=== PATIENT | female | born 1990 | race African-American/Black ===

== ENCOUNTER 2019-12-06 07:11 | Day surgery (SDC) | payer OTHER ==
[~2019-12-06 07:11] MED LIST: CEFAZOLIN SODIUM IN 0.9 % NACL 2 GM/100 ML BAG IV ONE
[2019-12-06] MEDS ORDERED: LACTATED RINGERS 1,000 ML IV ONE (07:30)
[2019-12-06 07:54] LABS: HCG UR QUAL NEGATIVE
--- NOTE | 2019-12-06 08:01 | ANESTHESIA ---
Pre-Anesthesia VS, & Labs - Diagnosis Right hallux valgus - Procedure Right bunionectomy Vital Signs: Temp Pulse Resp BP Pulse Ox 36.2 C L 80 16 145/95 H 100 12/06/19 07:35 12/06/19 07:35 12/06/19 07:35 12/06/19 07:35 12/06/19 07:35 Height 5 ft 5 in Weight (kg) 102 kg - NPO >8 hours - Is Patient ?: No - Lab Results Lab results reviewed: Yes Home Medications and Allergies Home Medications: Ambulatory Orders Ferrous Sulfate 324 mg PO DAILY 11/28/19 Levonorgestrel-Ethin Estradiol [Sronyx] 1 each PO DAILY 11/28/19 Ferrous Sulfate 324 mg PO DAILY 11/28/19 Levonorgestrel-Ethin Estradiol [Sronyx] 1 each PO DAILY 11/28/19 Allergies/Adverse Reactions: Allergies Allergy/AdvReac Type Severity Reaction Status Date / Time No Known Drug Allergies Allergy Verified 11/28/19 13:01 Anes History & Medical History - Anesthetic History Anesthesia Complications: reports: No previous complications Family history of Anesthesia Complications: Denies Family history of Malignant Hyperthermia: Denies - Medical History Cardiovascular: reports: None Pulmonary: reports: None Gastrointestinal: reports: None Urinary: reports: None Neuro: reports: None Musculoskeletal: reports: None Endocrine/Autoimmune: reports: None Blood Disorders: reports: None Skin: reports: None Smoking Status: Never smoker Psychosocial: reports: Alcohol (once per week) Exam General: Alert, Oriented x3, Cooperative, No acute distress Dental: WNL Mouth Openin Fingerbreadth Neck Mobility: Normal Mallampati classification: I Thyromental Distance: greater than 6 cm Respiratory: Lungs clear, Normal breath sounds, No respiratory distress, No accessory muscle use Cardiovascular: Regular rate, Normal S1, Normal S2, No murmurs Mental/Cognitive Status: Alert/Oriented X3, Normal for patient Plan Anesthesia Type: General Consent for Procedure(s) Verified and Reviewed: Yes Code Status: Attempt Resuscitation ASA classification: 1-Healthy patient Is this case an emergency?: No
[2019-12-06] MEDS ORDERED: BUPIVACAINE 0.25% PF 30 ML VIAL ONE (08:14)
[2019-12-06] MEDS ORDERED: ONDANSETRON 4 MG/2 ML VIAL IVP ONE (08:35)
[2019-12-06] MEDS ORDERED: KETOROLAC 30 MG/ML VIAL IVP ONE (08:35)
[2019-12-06] MEDS ORDERED: HYDROmorphone 1 MG/ML CARPUJECT IVP ONE (08:35)
[2019-12-06] MEDS ORDERED: MIDAZOLAM 2 MG/2 ML VIAL IVP ONE (08:35)
[2019-12-06] MEDS ORDERED: fentaNYL 100 MCG/2 ML VIAL IVP ONE (08:35)
[2019-12-06] MEDS ORDERED: LIDOCAINE-MPF 2% 5 ML VIAL IM ONE (08:35)
[2019-12-06] MEDS ORDERED: ePHEDrine 50 MG/ML VIAL IVP ONE (08:35)
[2019-12-06] MEDS ORDERED: PROPOFOL 200 MG/20 ML VIAL IVP ONE (08:35)
[2019-12-06] MEDS ORDERED: DEXAMETHASONE 4 MG/ML VIAL IVP ONE (08:35)
[2019-12-06] MEDS ORDERED: BUPIVACAINE 0.25% PF 30 ML VIAL SUBQ ONE ×2 (09:11)
[2019-12-06] MEDS ORDERED: ONDANSETRON 4 MG/2 ML VIAL IVP PRN (11:01)
[2019-12-06] MEDS ORDERED: oxyCODONE 5 MG TABLET PO PRN (11:01)
--- NOTE | 2019-12-06 11:04 | OPERATIVE REPORT ---
Operative Report - Other Other Information/Narrative: Date of Surgery: 06 December 2019 Pre-Op Diagnosis: Right hallux valgus Procedure: Right bunion correction with first metatarsal scarf osteotomy and modified Thornton procedure Postop Diagnosis: Same Primary Surgeon: Tom Unger Secondary Surgeon: None Complications: None Tourniquet Time: 106 minutes EBL: 5 cc Bunion Postoperative Plan: 0-2 weeks: No weight bearing leave dressing intact 2 week appt: Non weight bearing xrays, sutures out, bunion brace applied 2-4 weeks: No weight bearing, may remove bunion brace for showers, no soaking incision 4 week appt: Reassess, provide forefoot offloading hard soled shoe 4-8 weeks: WBAT in forefoot offloading shoe, continue to use bunion brace 8 week monik: Weight bearing xrays, may transition to normal shoe Indication For Surgery: 29-year-old female with bunion since a child. She is tried wide shoes, activity modifications, and anti-inflammatory medications but continues to have symptoms while performing her job in her to standard work boot. The risks, benefits, and alternatives were discussed. Risks include pain, bleeding, infection, damage to nearby structures, numbness, recurrence of bunion, hallux varus, lack of symptom relief, implant complications, nonunion, need for further surgery, DVT, PE, stroke, and . Written consent was obtained. Procedure in Detail: The patient was met in the pre-operative hold area on the day of the procedure. The operative extremity was signed and questions were answered. The patient was brought to the operating room and a general anesthetic was administered. Supine position was used and bony prominences were padded. Standard prepping and draping was performed. A time out confirmed patient identification, laterality, procedure, allergies, antibiotics, and images. An Esmarch was used to exsanguinate the limb and the tourniquet was elevated to 300 mmHg. A 3 cm incision was made between the first and second metatarsal heads and blunt dissection was carried down. The neurovascular bundle was protected with a dull retractor. I identified the adductor tendon and the intermetacarpal ligament and sharply resected them from their attachments on the first ray. I took care to leave the flexor hallucis brevis attached to the lateral sesamoid. I incised the capsule between the sesamoid and the metacarpal head. I then pie crusted the lateral capsule between the metacarpal head and the proximal phalanx. A varus force was then applied to the toe and the toe freely moved in the varus. This wound was then packed with gauze A direct medial incision was made over the first metatarsal from the metatarsal phalangeal joint to just short of the tarsometatarsal joint. Blunt dissection was used to identify the dorsal cutaneous nerve and this was protected throughout the case. Full-thickness skin flaps were created. A full-thickness longitudinal capsular incision was made in the first MTP joint and the capsule was dissected off of the metatarsal head ensuring to preserve the plantar capsular attachments with the accompanying blood supply. A periosteal elevator was used to free the periosteum along the medial shaft. A silver osteotomy was then performed just off the cartilage surface ensuring to leave a medial shoulder. The distal dorsal transverse osteotomy was then made perpendicular to the first metatarsal shaft starting centrally and the metatarsal head. The total sawblade was left in place and the plantar proximal transverse osteotomy was made parallel to this ensuring to be within metaphyseal bone. The longitudinal osteotomy was then made parallel to the walking surface of the foot. A second proximal transverse osteotomy was made and a 4 mm chunk of bone was removed. A freer elevator was used to release the periosteum on the lateral surface to allow for the shift. I then shifted the plantar fragment laterally and pulled the dorsal fragment medially. This was then clamped in place and imaging confirmed excellent position. The plantar capsule was pulled on and the sesamoids reduced nicely. Satisfied with this position, countersunk 2.0 millimeter screws were placed proximally and distally confirming excellent purchase. The clamp was then removed and the fixation was stable. The medial shelf of bone was then excised with a sagittal saw. The wound was irrigated copiously. The medial shelf fragment was then flipped and inverted and placed plantarly at the osteotomy site. Images were again taken. I then reassessed the toe and found that there was good spread between the first and second toe and determined that an Rene osteotomy was not necessary. I then excised the excess medial capsule and performed a vest over pants plication and derotational capsular closure using 2-0 fiberwire, burying the knots between layers. This was backed up with multiple 0 Vicryl sutures. The periosteal layer was then closed with 0 Vicryl. The skin was closed with 2-0 Vicryl in the subdermis and 3-0 nylon in the skin. 20 cc of quarter percent Marcaine without epinephrine was placed deep to the incision. A sterile bunion dressing was applied. The patient was awakened and transferred to the recovery room.
[2019-12-06] MEDS ORDERED: ACETAMINOPHEN 1,000 MG/100 ML 100 ML IV ONE (11:07)
[2019-12-06] MEDS ORDERED: HYDROmorphone 0.5 MG/0.5 ML SYRINGE ONE (11:12)
[2019-12-06] MEDS ORDERED: fentaNYL 100 MCG/2 ML VIAL ONE (11:26)
[2019-12-06] MEDS ORDERED: oxyCODONE 5 MG TABLET ONE (11:47)
[2019-12-06 12:41] VITALS: BP 115/74
== END 2019-12-06 23:59 ==
LOC: SDS 07:11
PROVIDERS: ATTEND Orthopaedic Surgery
PROC: 0QBN0ZZ Excision of Right Metatarsal, Open Approach (ICD-10-PCS; 2019-12-06)
PROC: 0QSN04Z Reposition Right Metatarsal with Internal Fixation Device, Open Approach (ICD-10-PCS; principal; 2019-12-06 08:30)
DX: M20.11 Hallux valgus (acquired), right foot (principal); M20.12 Hallux valgus (acquired), left foot; E66.01 Morbid (severe) obesity due to excess calories
CPT/HCPCS: 81025

== ENCOUNTER 2020-06-14 18:04 | Emergency (ER) | payer OTHER ==
[2020-06-14 18:09] VITALS: BP 150/94
--- NOTE | 2020-06-14 18:31 | ED Physician Documentation ---
PD HPI LOWER EXT INJURY - Stated complaint Stated Complaint: RIGHT BIG TOE NAIL PX - Chief complaint Chief Complaint: Wound - History obtained from History obtained from: Patient - History of Present Illness PD HPI LOW EXT INJURY LOCATION: Right, Toe (great toe) Type of injury: Other (has had redness and swelling and then draining pus, but still red/tender.). No: Fall, Twist Timing - onset: How many days ago (few) Timing - duration: Days (few) Timing - details: Gradual onset, Still present Worsened by: Palpating Associated symptoms: Swelling, Discolored (red). No: Weakness, Numbness Similar symptoms before: Has not had sx before Review of Systems Constitutional: denies: Fever, Chills Neurologic: denies: Focal weakness, Numbness PD PAST MEDICAL HISTORY - Past Medical History Past Medical History: No Cardiovascular: None Respiratory: None Neuro: None Endocrine/Autoimmune: None GI: None : None HEENT: None Psych: None Musculoskeletal: None Derm: None - Past Surgical History Past Surgical History: Yes - Present Medications Home Medications: Ambulatory Orders Medication Instructions Recorded Confirmed Ferrous Sulfate 324 mg PO DAILY 11/28/19 12/06/19 Levonorgestrel-Ethin Estradiol 1 each PO DAILY 11/28/19 12/06/19 [Sronyx] Hydrocodone/Acetaminophen [[place] 1 each PO Q6H PRN #10 tablet 06/14/20 5-325 Tablet] Naproxen 375 mg PO TID #30 tablet 06/14/20 Sulfamethox/Trimeth 800/160 1 each PO BID #12 tablet 06/14/20 [Bactrim Ds 800/160] - Allergies Allergies/Adverse Reactions: Allergies Allergy/AdvReac Type Severity Reaction Status Date / Time No Known Drug Allergies Allergy Verified 06/14/20 18:09 - Social History Does the pt smoke?: No Smoking Status: Never smoker Does the pt have substance abuse?: No PD ED PE NORMAL - Vitals Vital signs reviewed: Yes - General General: Alert and oriented X 3, No acute distress, Well developed/nourished - Derm Derm: Normal color, Warm and dry - Extremities Extremities: Other (right great toe with redness and swelling with some drainage from medial nailbed corner. Small ingrown nail at corner which is trimmed without anesth.) - Neuro Neuro: No motor deficit, No sensory deficit Results - Vitals Vitals: Vital Signs - 24 hr 06/14/20 06/14/20 18:07 19:00 Temperature 36.7 C Heart Rate 97 88 Respiratory 17 Rate Blood Pressure 150/94 H O2 Saturation 99 Oxygen O2 Source Room air PD MEDICAL DECISION MAKING - ED course Complexity details: considered differential, d/w patient Departure - Departure Disposition: 01 Home, Self Care Clinical Impression: Paronychia Condition: Stable Record reviewed to determine appropriate education?: Yes Instructions: ED Fingernail Infec Follow-Up: BABS TRONCOSO ARNP [Primary Care Provider] - Prescriptions: Sulfamethox/Trimeth 800/160 [Bactrim Ds 800/160] 1 each PO BID #12 tablet Naproxen 375 mg PO TID #30 tablet Hydrocodone/Acetaminophen [[place] 5-325 Tablet] 1 each PO Q6H PRN #10 tablet PRN Reason: Pain Comments: Warm moist soaks to help promote drainage to 3 times a day. He can continue with the ointment to the area. Use Bactrim antibiotic twice daily for the next 5 or 6 days until this looks fully healed. Anti-inflammatory such as naproxen 2-3 times daily. Add Tylenol if needed for pain or hydrocodone for worse pain. Recheck if not improving well over the next several days and resolved within 5 or 6 days. Discharge Date/Time: 06/14/20 19:04
[2020-06-14] MEDS ORDERED: IBUPROFEN 600 MG TABLET PO STA (18:44)
[2020-06-14] MEDS ORDERED: SULFAMETH/TRIMETH DS 800/160 MG TABLET PO STA (18:45)
== END 2020-06-14 19:04 | disposition home or self-care (01) ==
LOC: ED 18:04
DX: L03.031 Cellulitis of right toe (principal)
CPT/HCPCS: 99283; A9270

== ENCOUNTER 2020-07-16 18:08 | Emergency (ER) | payer OTHER ==
--- NOTE | 2020-07-16 18:59 | ED Physician Documentation ---
PD HPI LOWER EXT INJURY - Stated complaint Stated Complaint: RT TOE PX - Chief complaint Chief Complaint: Ext Problem - History obtained from History obtained from: Patient (Few days worth of soreness of the right great toe with some purulent drainage from the lateral surface of the nail today consistent with an ingrown toenail) Review of Systems Constitutional: reports: Reviewed and negative Cardiac: reports: Reviewed and negative Respiratory: reports: Reviewed and negative PD PAST MEDICAL HISTORY - Past Medical History Cardiovascular: None Respiratory: None Neuro: None Endocrine/Autoimmune: None GI: None : None HEENT: None Psych: None Musculoskeletal: None Derm: None - Past Surgical History Past Surgical History: Yes - Present Medications Home Medications: Ambulatory Orders Medication Instructions Recorded Confirmed Ferrous Sulfate 324 mg PO DAILY 11/28/19 12/06/19 Levonorgestrel-Ethin Estradiol 1 each PO DAILY 11/28/19 12/06/19 [Sronyx] Naproxen 375 mg PO TID #30 tablet 06/14/20 Sulfamethox/Trimeth 800/160 1 each PO BID #12 tablet 06/14/20 [Bactrim Ds 800/160] Cephalexin [Keflex] 500 mg PO Q6H #28 capsule 07/16/20 - Allergies Allergies/Adverse Reactions: Allergies Allergy/AdvReac Type Severity Reaction Status Date / Time No Known Drug Allergies Allergy Verified 07/16/20 18:32 - Social History Does the pt smoke?: No Smoking Status: Never smoker Does the pt have substance abuse?: No PD ED PE NORMAL - Vitals Vital signs reviewed: Yes - General General: Alert and oriented X 3, No acute distress - Extremities Extremities: Other (The lateral part of the right great toe is ingrown with mild cellulitis and drainage) - Neuro Neuro: Alert and oriented X 3, Normal speech Results - Vitals Vitals: Vital Signs - 24 hr 07/16/20 18:21 Temperature 37.2 C Heart Rate 79 Respiratory 18 Rate Blood Pressure 142/92 H O2 Saturation 99 Oxygen O2 Source Room air Procedures - General procedure General procedure: After verbal informed consent was obtained a digital block was done of the right great toe with buffered lidocaine and then the lateral fifth was removed with sharp excision and the patient tolerated well. There was minimal bleeding. Departure - Departure Disposition: 01 Home, Self Care Clinical Impression: Ingrown toenail of right foot Condition: Good Record reviewed to determine appropriate education?: Yes Instructions: ED Ingrown Toenail Excised Prescriptions: Cephalexin [Keflex] 500 mg PO Q6H #28 capsule
[2020-07-16] MEDS: BUFFERED LIDOCAINE 10 ML SYRINGE SUBQ STA (19:01)
[2020-07-16 19:32] VITALS: BP 142/97
== END 2020-07-16 19:33 | disposition home or self-care (01) ==
LOC: ED 18:08
DX: L60.0 Ingrowing nail (principal); L03.031 Cellulitis of right toe
CPT/HCPCS: 11765; 99283

== ENCOUNTER 2021-05-09 09:47 | Outpatient (CLI) | payer OTHER ==
--- NOTE | 2021-05-09 10:49 | SLEEP CARE CONSULTATION ---
Information from patient questionnaire entered by Mary Ball. I have reviewed and concur with the information entered by Mary Ball. This document represents the service I personally performed and the decisions made by me, Shanita Gupta ARNP. History of Present Illness Service Date and Time: 05/09/2021 0947 Reason for Visit: New patient Chief Complaint: reports: Insomnia, Unrefreshed sleep, Snoring, Excessive daytime sleepiness, Observed pauses in breathing, Fatigue, Frequent awakenings at night Date of Onset: since 2016 Usual bedtime: 1-2 am Time it takes to fall asleep: a few hours Snores at night: Yes Observed to quit breathing while asleep: Yes Number of times waking at night: 1-2 Reasons for waking at night: reports: Snoring (sometimes), Gasping for air, Other (unknown reason) Toss, Turn, or Twitch while sleeping: Yes Recalls having dreams: Yes Usually gets out of bed at: after 5 Feels refreshed in the morning: No Morning headache: Yes (sometimes, resolves with pain relievers; 1-2 times a week) Sleepy or fatigued during the day: Yes Ever fallen asleep while driving: No Takes day naps: Yes (3-4 times a week for about an hour or so) Dreams during day naps: No Prior sleep studies: No Additional HPI information: I had the pleasure of seeing WENDY SIMMS today regarding the possibility of her having a sleep disorder. Her current complaints are fatigue, frequent night awakenings, insomnia, observed pauses in breathing, snoring and unrefreshed sleep. She states in the last 2 years she has trouble sleeping. She will fall asleep in 1-2 hours at night and then wake up again about 2 AM and not be able to fall back to sleep. She has used Advil PM and melatonin with some success in getting to sleep sooner and may stay asleep better as well. She does snore loudly and some observed pauses in breathing when asleep. She does not wake up feeling refreshed and is sleepy during the day. She will use energy drinks in morning occasionally to get going. - Parasomnia Symptoms Ever been unable to move upon waking from sleep: Yes (every other month) Walks in sleep: No Talks in sleep: Yes (sometimes; makes humming noises) Ever acted out dreams in sleep: No Ever felt weak in the knees when startled or emotional: No Bothered by creepy, crawly, restless sensations in legs: Yes (usually right before going to sleep) Problems with memory or concentration: No Subjective Initial [place] Sleepiness Scale score: 14 (in 2020) Past Medical History Past Medical History: reports: Anemia, Anxiety Social History The patient's occupation is a Active . Patient is Single and lives in [place]. Have you smoked in the past 12 months: No Alcohol use: Yes Alcohol amount and frequency: 1-2 drinks every other week Caffeine use: Yes Caffeine amount and frequency: 1-2 drinks every other week Family History Family history of sleep disordered breathing: Yes Family Hx Sleep Apnea: Mother: Snoring, Sleep apnea - Untreated (not diagnosed) Allergies and Home Medications Drug allergies reviewed: Yes (NKDA) Home medication list reviewed: Yes Allergy and home medication list: Baclofen Ibuprofen Selenium sulfide 2.5 % lotion Carboxymethylcellulose sodum 0.5% eye drop ferrous sulfate 324 mg Orsythia Review of Systems Weight gain over past 5 years: 80 Weight loss over past 5 years: 10-15 Cardiovascular: denies: high blood pressure Gastrointestinal: denies: heartburn Neurological: denies: headaches Psychiatric: reports: anxiety Ear/Nose/Throat: reports: wisdom teeth removed. denies: injury to nose, tonsillectomy Endocrine: denies: thyroid disease Immunologic: denies: allergies to food or environment Physical Exam Cuff size: wrist Heart Rate: 65 O2 Saturation: 98 Height: 5 ft 5 in Weight: 242 lb Body Mass Index: 40.2 BMI Classification: Morbidly Obese Neck circumference: 14.75 (inches) Soft palate: normal Hard palate: normal Uvula: normal Uvula visualization: 100% Mallampati Class I Tongue: enlarged in size with teeth mckeon on lateral edges Tonsils: 1+ Neck: normal w/o lymphadenopathy or thyromegaly Heart: regular rate and rhythm Lungs: clear bilaterally Impression and Plan 1. Suspected Obstructive Sleep Apnea-Hypopnea Syndrome, as suggested by a history of loud and irregular snoring, observed cessation of breath while asleep, gasping or choking in sleep, morning headache, frequent awakening during the night, unrefreshed sleep, and excessive daytime sleepiness. Narrow oropharynx and obesity are common predisposing factors for obstructive sleep apnea-hypopnea syndrome. I recommend proceeding to polysomnography to confirm the diagnosis and to assess severity. If the patient has significant sleep disordered breathing, a manual CPAP titration study will also be performed to find the optimal treatment pressure. I informed the patient of what the sleep studies involve and after some discussion, obtained agreement to proceed. The pathophysiology of obstructive sleep apnea-hypopnea syndrome was discussed with the patient and health risks of cardiovascular and cerebrovascular disease if not treated. AAS brochure for obstructive sleep apnea-hypopnea syndrome given and reviewed. Risks of drowsy driving discussed in detail and patient advised to avoid long distance driving and to cotton puller at the first sign of drowsiness. Patient agreed to plan. * Schedule polysomnography +- manual CPAP titration study and return in 1-2 weeks after the study to discuss result and initiate therapy. * Avoid long distance driving or driving when feeling sleepy. * Avoid alcohol, sedative and muscle relaxant around bedtime. * Attempt to lose weight. * Review instructions provided by trained office staff on how to prepare for the sleep study. * Return for follow-up after sleep study completed. Counseling Topics: Weight loss health impact Visit Type: In Office Time Spent with Patient (minutes): 31 Provider Statement: I spent 100% of the Face to Face Visit with the patient with greater than 50% spent counseling the patient and coordination of care.
== END 2021-05-09 09:48 | disposition home or self-care (01) ==
LOC: SC 09:47
PROVIDERS: ATTEND Nurse Practitioner Family
DX: R06.83 Snoring (principal); R06.81 Apnea, not elsewhere classified; G47.8 Other sleep disorders; R51.9 Headache, unspecified; G47.10 Hypersomnia, unspecified; E66.01 Morbid (severe) obesity due to excess calories; Z68.41 Body mass index [BMI] 40.0-44.9, adult
CPT/HCPCS: 99203; 99212

== ENCOUNTER 2021-06-13 14:56 | Outpatient (CLI) | payer OTHER | END 2021-06-13 14:57 | disposition home or self-care (01) | LOC: SC 14:56 | PROVIDERS: ATTEND Nurse Practitioner Family | DX: G47.33 Obstructive sleep apnea (adult) (pediatric) (principal); E66.01 Morbid (severe) obesity due to excess calories; Z68.41 Body mass index [BMI] 40.0-44.9, adult | CPT/HCPCS: 95806 ==

== ENCOUNTER 2021-06-27 08:28 | Outpatient (CLI) | payer OTHER ==
--- NOTE | 2021-06-27 08:56 | SLEEP CARE CONSULTATION ---
Information from patient questionnaire entered by Mary Ball. I have reviewed and concur with the information entered by Mary Ball. This document represents the service I personally performed and the decisions made by , Shanita Gupta ARNP. History of Present Illness Service Date and Time: 06/27/2021827 Initial [place] Sleepiness Scale score: 14 (in 2020) Current [place] Sleepiness Scale score: 12 Additional HPI information: WENDY SIMMS returns for follow up and results of the recently performed home sleep study. I explained the pathophysiology behind obstructive sleep apnea. We then spent quite a bit of time discussing different treatment options. For mild obstructive sleep apnea, surgery and oral appliance are alternatives to nasal CPAP therapy but in moderate or severe cases, nasal CPAP is the most effective and reliable treatment. I reviewed the impact of weight changes on sleep apnea and strongly recommended losing weight. After some discussion, the patient opted to go with the nasal CPAP therapy. Nasal autoCPAP set at 4-15 cmH20 will be ordered with rationale explained. A manual titration study will be ordered if unable to find optimal pressure with office adjustments. I explained how CPAP machine works with sample devices [employer] Dreamstation and [employer] [id number] and what to expect when using the machine. Using CPAP every night in order to get used to it was emphasized. Patient advised to put CPAP mask on before getting into bed so as not to fall asleep without CPAP. To assist acclimation to CPAP use, it could also be used for a short time during day while reading or watching TV. The patient was instructed to call the CPAP supplier to discuss any mechanical problem that may occur. If the mask given is uncomfortable or is difficult to keep on through the night even with adjustment, contact the CPAP supplier as many will replace with another mask style if notified before 30 days. If snoring or perceives is not getting enough air or too much air from the machine, notify this office. [facility] patient education PAP tips reviewed and given to patient. Patient counseled not drink alcohol less than 4 hours before bedtime as it can increase snoring and apnea. Patient was cautioned about risks of drowsy driving until sleepiness symptoms resolve. Sleep Study - Results Type of Sleep Study: Home sleep study Prior sleep studies: No Polysomnography/Home Sleep Study results: Physician Impression: The quality of the study is good. The length of the study is adequate (> 240 minutes). Please also see the tabulated and graphic data. 1. Obstructive Sleep Apnea-Hypopnea (ICD-10 G47.33), moderate, with an AHI of 16.4/hr and ba SaO2 of 76%. During the study, the patient had 46 apneas (46 obstructive, 0 central, 0 mixed) and 37 hypopneas. The longest episode lasted 84.0 seconds. The respiratory events occurred more frequently during supine sleep (supine AHI was 14.6 and non-supine, 22.61). 2. Hypoxemia (ICD-10 R09.02), moderate, with the lowest oxygen saturation of 76 % and 4.5 minutes with SaO2 under 90%. Baseline oxygen saturation was normal (Average oxygen saturation was 95%). Allergies and Home Medications Home medication list reviewed: Yes (no changes) Review of Systems Review of systems same as previous: Yes (no changes) Physical Exam Heart Rate: 86 O2 Saturation: 98 Height: 5 ft 5 in Weight: 242 lb Body Mass Index: 40.2 BMI Classification: Morbidly Obese Impression and Plan 1. Obstructive Sleep Apnea-Hypopnea Syndrome, moderate, with lowest oxygen saturation of 76%. Obviously this is the cause of the patients symptoms of unrefreshed sleep, and excessive daytime sleepiness. Positive pressure therapy could benefit anxiety. As mentioned above, the patient will be started on nasal autoCPAP therapy with pressure set at 4-15 cmH2O. A manual titration study will be completed if unable to find optimal treatment pressure with office adjustments. Compliance guidelines also reviewed. A copy of compliance gu idelines will be given for reference at check out. 2. Hypoxemia, moderate, with the lowest oxygen saturation of 76 % and 4.5 minutes with SaO2 under 90%. Her baseline oxygen saturation was normal with an average oxygen saturation of 95%. * Nasal auto CPAP therapy, pressure at 4-15 cm H2O. * Attempt to lose weight. * Avoid alcohol consumption near bedtime. * Avoid supine sleep until using CPAP. * The patient is again cautioned about driving until sleepiness completely resolves. * Return one month after CPAP obtained. I will assess response to therapy and compliance at that time. Counseling Topics: Weight loss health impact Visit Type: In Office Time Spent with Patient (minutes): 20 Provider Statement: I spent 100% of the Face to Face Visit with the patient with greater than 50% spent counseling the patient and coordination of care.
== END 2021-06-27 08:29 | disposition home or self-care (01) ==
LOC: SC 08:28
PROVIDERS: ATTEND Nurse Practitioner Family
DX: G47.33 Obstructive sleep apnea (adult) (pediatric) (principal); E66.01 Morbid (severe) obesity due to excess calories; Z68.41 Body mass index [BMI] 40.0-44.9, adult; R09.02 Hypoxemia
CPT/HCPCS: 99212; 99213

== ENCOUNTER 2021-07-17 19:47 | Emergency (ER) | payer OTHER ==
--- NOTE | 2021-07-17 21:33 | XRAY Report ---
PROCEDURE: Knee 4 View RT INDICATIONS: lateral joint line pain/swelling TECHNIQUE: 4 views of the right knee(s) were acquired. COMPARISON: None. FINDINGS: Bones: No fractures or dislocations. Mild tricompartmental osteoarthritis is seen more prominent in medial femoral tibial compartment. No suspicious bony lesions. Soft tissues: No joint effusion. No suspicious soft tissue calcifications. IMPRESSION: No right knee fracture or dislocation. Mild tricompartmental osteoarthritis. No signific ant joint effusion. Reviewed by: Efrain Adhikari MD on 07/17/2021 9:32 PM PDT Approved by: Efrain Adhikari MD on 07/17/2021 9:32 PM PDT Station ID: [id number]
--- NOTE | 2021-07-17 21:35 | ED Physician Documentation ---
PD HPI LOWER EXT INJURY - Stated complaint Stated Complaint: RT KNEE PX - Chief complaint Chief Complaint: Ext Problem - History obtained from History obtained from: Patient - History of Present Illness PD HPI LOW EXT INJURY LOCATION: Right, Knee Type of injury: Other (over use) Where injury occurred: Street Timing - onset: How many days ago (2) Timing - duration: Days (2) Timing - details: Abrupt onset, Still present Improved by: Rest, Immobilization Worsened by: Moving, Palpating Associated symptoms: Swelling. No: Weakness, Numbness, Tingling Contributing factors: No: Anticoagulated Similar symptoms before: Diagnosis (knee strain) Recently seen: Not recently seen - Additional information Additional information: Previously well 30-year-old female has developed a problem similar to what she has today previously in December of this year with pain in her right knee. She states that at that time she was prescribed some Motrin and she reduced her level of activity her knee improved she is gone back to training again she is being more active and over the last 2 days she has developed pain again in the knee with swelling. Review of Systems Constitutional: denies: Fever Ears: denies: Ear pain Nose: denies: Congestion Throat: denies: Sore throat GI: denies: Vomiting PD PAST MEDICAL HISTORY - Past Medical History Cardiovascular: None Respiratory: None Neuro: None Endocrine/Autoimmune: None GI: None POKE IN: None : None HEENT: None Psych: None Musculoskeletal: None Derm: None - Past Surgical History Past Surgical History: Yes - Present Medications Home Medications: Ambulatory Orders Medication Instructions Recorded Confirmed Ferrous Sulfate 324 mg PO DAILY 11/28/19 12/06/19 Levonorgestrel/Ethin.estradiol 1 each PO DAILY 11/28/19 12/06/19 [Sronyx] Naproxen 375 mg PO TID #30 tablet 06/14/20 Sulfamethox/Trimeth 800/160 1 each PO BID #12 tablet 06/14/20 [Bactrim Ds 800/160] cephALEXin [Keflex] 500 mg PO Q6H #28 capsule 07/16/20 Ibuprofen [Motrin] 600 mg PO Q6H PRN #30 tab 07/17/21 - Allergies Allergies/Adverse Reactions: Allergies Allergy/AdvReac Type Severity Reaction Status Date / Time No Known Drug Allergies Allergy Verified 07/17/21 19:54 - Social History Does the pt smoke?: No Smoking Status: Never smoker Does the pt have substance abuse?: No - Immunizations Immunizations are current?: Yes PD ED PE NORMAL - Vitals Vital signs reviewed: Yes (hyertensive ) - General General: Alert and oriented X 3, No acute distress, Well developed/nourished - HEENT HEENT: Atraumatic, PERRL, EOMI - Respiratory Respiratory: No respiratory distress - Derm Derm: Normal color, Warm and dry, No rash - Extremities Extremities: No deformity, No edema, Other (right knee with swelling tenderness to the lateral aspect. Ligaments are stable. ) - Neuro Neuro: Alert and oriented X 3, medical records coordinator 2-12 intact, No motor deficit, No sensory de ficit, Normal speech Eye Opening: Spontaneous Motor: Obeys Commands Verbal: Oriented GCS Score: 15 - Psych Psych: Normal mood, Normal affect Results - Vitals Vitals: Vital Signs - 24 hr 07/17/21 07/17/21 19:50 21:43 Temperature 36.3 C L Heart Rate 75 78 Respiratory 16 17 Rate Blood Pressure 151/101 H 149/98 H O2 Saturation 99 98 Oxygen O2 Source Room air - Rads (name of study) knee Radiology: Prelim report reviewed (Impression: No right knee fracture or dislocation. Mild tricompartmental osteoarthritis. No significant joint effusion.), EMP read indepedently, See rad report PD MEDICAL DECISION MAKING - ED course Complexity details: reviewed results, re-evaluated patient, considered differential, d/w patient ED course: 30 y/o female with a right knee strain/sprain is administered decadron. Departure - Departure Disposition: 01 Home, Self Care Clinical Impression: Internal derangement of knee Qualifiers: Laterality: right Qualified Code(s): M23.91 - Unspecified internal derangement of right knee Condition: Stable Instructions: ED Meniscal Injury Knee Poss Follow-Up: Bong Quijano MD [Provider Admit Priv/Credential] - Prescriptions: Ibuprofen [Motrin] 600 mg PO Q6H PRN #30 tab PRN Reason: Pain Discharge Date/Time: 07/17/21 21:43
[2021-07-17] MEDS ORDERED: CHERRY SYRUP 10 ML UDC PO ONE (21:36)
[2021-07-17] MEDS ORDERED: DEXAMETHASONE 10 MG/ML VIAL PO STA (21:36)
[2021-07-17 21:43] VITALS: BP 149/98
== END 2021-07-17 21:43 | disposition home or self-care (01) ==
LOC: ED 19:47
DX: M23.91 Unspecified internal derangement of right knee (principal)
CPT/HCPCS: 73564; 99282; 99283; A9270

== ENCOUNTER 2022-08-01 10:12 | Outpatient (CLI) | payer OTHER ==
[2022-08-01 10:57] VITALS: BP 140/88
--- NOTE | 2022-08-01 10:57 | SLEEP CARE CONSULTATION ---
Information from patient questionnaire entered by Lola Castorena. I have reviewed and concur with the information entered by Lola Castorena. This document represents the service I personally performed and the decisions made by me, Shanita Gupta ARNP. History of Present Illness Service Date and Time: 08/01/2022 1012 Previous diagnosis: Moderate, Obstructive Sleep Apnea-Hypopnea Syndrome AHI: 16.4 (in 2020) Reason for follow up: first compliance (SET UP 07/2021, RESMED) Equipment type: CPAP (ResMed) Equipment obtained from: Other ([facility]; getting supplies as needed) Mask style: Full face (Vitera F&P) Mask brand: [employer] Backup mask available: Yes (old mask) Last cushion change: last week Prior sleep studies: No Type of Sleep Study: Home sleep study HPI additional information: WENDY SIMMS was diagnosed to have moderate, AHI 16.4, obstructive sleep apnea-hypopnea syndrome and returned today for CPAP therapy first compliance follow-up. Sleep Study - Results Type of Sleep Study: Home sleep study Prior sleep studies: No CPAP Compliance Data - Data Reviewed with Patient Average duration of nightly device use: 4 hours 55 minutes Compliance rate %: 51 (145/180 days used; 57% 29/30 days used) Current pressure setting (cmH2O): 4-15 (median 7.0, avg 19.7, max 11.6) Average residual AHI: 1.5 Average large leak: 4.7 L/min Subjective Missed days of use due to: reports: mask issues Patient concerns: reports: mask discomfort, mask leak noise, dry mouth, nose, throat, other (skin breaking out; higher pressure occasionally, recently air pressure stopped - waking her up). denies: aerophagia, air blowing in eyes, condensation in mask/hose, nasal congestion, epistaxis Observed to snore while using device: No Current pressure setting perceived as: too high (sometimes and then also too low) On therapy, patient: reports: sleeping better, awakening more refreshed, being more awake and alert during the day, more rested overall. denies: drowsiness while driving Initial [place] Sleepiness Scale score: 14 (in 2020) Current [place] Sleepiness Scale score: 16 (08/01/22) Allergies and Home Medications Drug allergies reviewed: Yes (NKDA) Home medication list reviewed: Yes (no changes) Allergy and home medication list: Allergies No Known Drug Allergies Allergy (Verified 07/17/21 19:54) Review of Systems Review of systems same as previous: Yes (no changes) Physical Exam Vital signs obtained and entered by: KELL BROOKS Blood Pressure: 140/88 (left arm ) Cuff size: regular Heart Rate: 61 O2 Saturation: 99 Height: 5 ft 5 in Weight: 232 lb Body Mass Index: 38.6 BMI Classification: Obese Impression and Plan 1. Obstructive Sleep Apnea-Hypopnea Syndrome, moderate, with fair treatment compliance and good apnea control. On CPAP therapy, the patient has better sleep quality and is more rested overall. Patient states her pressure has been good until recently she is having night when the pressure will go high and wake her up. She states it is not also shutting off during the night. I will have the machine serviced to make sure the pressure is working accurately. She is having some skin irritation, rash where the mask comes in contact with her face. I advised her to get mask liners to use as a barrier to reduce skin irritation. The patients pressure will be changed to autoCPAP 7-12 cmH20 to reflect pressur e being used. Patient advised to contact me if pressure change is uncomfortable so that it can be adjusted. Goals for apnea control discussed. Patient's apnea severity and rationale for treatment to reduce apnea, improve sleep quality and reduce cardiovascular and cerebrovascular events was reviewed. I also reviewed the benefit of consistent device use of CPAP for anxiety. 2. Obesity, unspecified. Patient states that she has lost weight. Currently patients BMI is 38.6. Obesity increases the risk of apnea, CPAP pressure requirements and overall health risks especially cardiovascular and diabetes. Thus patient is advised to lose weight. Weight loss can be done with reducing portion size, reducing refined foods and balancing content with vegetables, fruit and whole grain foods. In addition, patient encouraged to get regular exercise. * Service machine order - pressure going too high and shutting off at night waking patient * Change auto CPAP pressure to 7-12 cmH2O * Update supplies * Notify me if snoring with mask or feeling that the pressure is too much or too little * Attempt to lose weight * Call this office if any problems using CPAP * Return for follow up in 1-2 months, or sooner if concerns arise Counseling Topics: Spare mask, Weight loss health impact Visit Type: In Office Time Spent with Patient (minutes): 24 Provider Statement: I spent 100% of the Face to Face Visit with the patient with greater than 50% spent counseling the patient and coordination of care.
== END 2022-08-01 10:13 | disposition home or self-care (01) ==
LOC: SC 10:12
PROVIDERS: ATTEND Nurse Practitioner Family
DX: G47.33 Obstructive sleep apnea (adult) (pediatric) (principal); E66.9 Obesity, unspecified; Z68.38 Body mass index [BMI] 38.0-38.9, adult
CPT/HCPCS: 99212; 99213

== ENCOUNTER 2022-09-19 11:31 | Outpatient (CLI) | payer OTHER ==
[2022-09-19 12:17] VITALS: BP 130/90
--- NOTE | 2022-09-19 12:17 | SLEEP CARE CONSULTATION ---
Information from patient questionnaire entered by Cheyenne Soto. I have reviewed and concur with the information entered by Cheyenne Soto. This document represents the service I personally performed and the decisions made by me, Shanita Gupta ARNP. History of Present Illness Service Date and Time: 09/19/2022 1131 Previous diagnosis: Moderate, Obstructive Sleep Apnea-Hypopnea Syndrome AHI: 16.4 (in 2020) Reason for follow up: one month (F/U PRESSURE CHANGE) Equipment type: CPAP (ResMed) Equipment obtained from: Other ([facility]; getting supplies as needed) Mask style: Full face (Vitera F&P) Mask brand: Back[employer] Backup mask available: Yes (old mask) Last cushion change: 5-6 days Prior sleep studies: No Type of Sleep Study: Home sleep study HPI additional information: WENDY SIMMS was diagnosed to have moderate, AHI 16.4, obstructive sleep apnea-hypopnea syndrome and returned today for CPAP therapy one month follow-up. Sleep Study - Results Type of Sleep Study: Home sleep study Prior sleep studies: No CPAP Compliance Data - Data Reviewed with Patient Average duration of nightly device use: 4 hours 50 minutes Compliance rate %: 60 (/ days used) Current pressure setting (cmH2O): 7-12 Average residual AHI: 1.5 Central apnea: 0.3 Obstructive apnea: 0.3 Compliance data discussion: Sometimes waking up and machine has turned off; shut off when wearing while awake. Subjective Missed days of use due to: reports: mask issues Patient concerns: reports: mask discomfort, air blowing in eyes, mask leak noise, condensation in mask/hose, dry mouth, nose, throat, other (headache). denies: aerophagia, nasal congestion, epistaxis Observed to snore while using device: No Current pressure setting perceived as: comfortable On therapy, patient: reports: sleeping better, awakening more refreshed, being more awake and alert during the day, more rested overall. denies: drowsiness while driving Initial [place] Sleepiness Scale score: 14 (in 2020) Current [place] Sleepiness Scale score: 14 Allergies and Home Medications Drug allergies reviewed: Yes (NKDA) Home medication list reviewed: Yes (Bactrim x 7 days, for acne) Review of Systems Review of systems same as previous: Yes (no changes) Physical Exam Vital signs obtained and entered by: Mustapha Castorena, general road supervisor Pressure: 130/90 (L) Heart Rate: 74 O2 Saturation: 99 Height: 5 ft 5 in Weight: 234 lb Body Mass Index: 38.9 BMI Classification: Obese Impression and Plan 1. Obstructive Sleep Apnea-Hypopnea Syndrome, moderate, with good treatment com pliance and good apnea control. On CPAP therapy, the patient has better sleep quality and is more rested overall. Patient has been having lots of mask leak noise with her full face F&P Vitera mask. She states it is a large cushion and is not sure it fits her face well. She has been getting some oral dryness and when she turned up her humidity which helped but then she got condensation in the tubing and mask. She turned the humidity back down. I advised her to try to increase the tubing temperature to reduce condensation. She has also had to machine turn off when she was wearing the mask and a couple times during the night. I will have the machine serviced to check for malfunction. She also has been getting headache after the last pressure change. her AHI is well controlled at 1.5 and her average pressure use was 11.2 cmH2O. I will adjust her pressure to 7-10.6 cmH2O to try to reduce headaches. I had [place], Lead Dictaphone Mechanic, come and fit her with a [employer] full face mask, size medium. She liked the fit and will try this mask at home. Patient's apnea severity and rationale for treatment to reduce apnea, improve sleep quality and reduce cardiovascular and cerebrovascular events was reviewed. I also reviewed the benefit of consistent device use of CPAP for anxiety. 2. Obesity, unspecified. Currently patients BMI is 38.9. Obesity increases the risk of apnea, CPAP pressure requirements and overall health risks especially cardiovascular and diabetes. Thus patient is advised to lose weight. * Service machine for shutting off on own at night * Change auto CPAP pressure to 7-10.6 cmH2O * Notify me if snoring with mask or feeling that the pressure is too much or too little * Attempt to lose weight * Call this office if any problems using CPAP * Return for follow up in 1-2 months, or sooner if concerns arise Mask provided: Yes Counseling Topics: Spare mask, Weight loss health impact Visit Type: In Office Time Spent with Patient (minutes): 21 Provider Statement: I spent 100% of the Face to Face Visit with the patient with greater than 50% spent counseling the patient and coordination of care.
== END 2022-09-19 11:32 | disposition home or self-care (01) ==
LOC: SC 11:31
PROVIDERS: ATTEND Nurse Practitioner Family
DX: G47.33 Obstructive sleep apnea (adult) (pediatric) (principal); E66.9 Obesity, unspecified; Z68.38 Body mass index [BMI] 38.0-38.9, adult
CPT/HCPCS: 99212; 99213

== ENCOUNTER 2022-11-21 14:40 | Outpatient (CLI) | payer OTHER ==
[2022-11-21 15:23] VITALS: BP 132/84
--- NOTE | 2022-11-21 15:23 | SLEEP CARE CONSULTATION ---
Information from patient questionnaire entered by Jailyn Soto. I have reviewed and concur with the information entered by Jailyn Soto. This document represents the service I personally performed and the decisions made by me, Shanita Gupta ARNP. History of Present Illness Service Date and Time: 11/21/2022 1440 Previous diagnosis: Moderate, Obstructive Sleep Apnea-Hypopnea Syndrome AHI: 16.4 (in 2020) Reason for follow up: other (TWO MONTH F/U) Equipment type: CPAP (ResMed Airsense 11, s/u 07/2021) Equipment obtained from: Other ([facility]; getting supplies as needed) Mask style: Full face (Vitera F&P) Backup mask available: Yes (other mask) Last cushion change: 3 weeks Prior sleep studies: No Type of Sleep Study: Home sleep study HPI additional information: WENDY SIMMS was diagnosed to have moderate, AHI 16.4, obstructive sleep apnea-hypopnea syndrome and returned today for CPAP therapy two month with pressure change follow-up. Sleep Study - Results Type of Sleep Study: Home sleep study Prior sleep studies: No CPAP Compliance Data - Data Reviewed with Patient Average duration of nightly device use: 4 hours 55 minutes Compliance rate %: 42 (38/60 days used) Current pressure setting (cmH2O): 7-10.6 Average residual AHI: 1.5 Central apnea: 0.6 Obstructive apnea: 0.3 Subjective Missed days of use due to: reports: mask issues (Weird noises coming from mask/hose), illness (had a cold) Patient concerns: reports: mask discomfort, air blowing in eyes, mask leak noise, condensation in mask/hose (noises sounded like condensation in tubing), dry mouth, nose, throat. denies: aerophagia, nasal congestion, epistaxis Observed to snore while using device: No Current pressure setting perceived as: comfortable On therapy, patient: reports: awakening more refreshed, being more awake and alert during the day. denies: drowsiness while driving Initial [place] Sleepiness Scale score: 14 (in 2020) Current [place] Sleepiness Scale score: 18 (11/21/22) Allergies and Home Medications Drug allergies reviewed: Yes (NKDA) Home medication list reviewed: Yes (no changes) Review of Systems Review of systems same as previous: Yes (no changes) Physical Exam Vital signs obtained and entered by: JAILYN Oakes MA Blood Pressure: 132/84 (LEFT ARM) Cuff size: regular Heart Rate: 67 O2 Saturation: 99 Height: 5 ft 5 in Weight: 240 lb 9.6 oz Weight change since last visit: 6 lb gain Body Mass Index: 40.0 BMI Classification: Morbidly Obese Impression and Plan 1. Obstructive Sleep Apnea-Hypopnea Syndrome, moderate, with poor treatment compliance and good apnea control. On CPAP therapy, the patient has better sleep quality and is more rested overall. Patient has been struggling with using the mask. She tried the Dreamwear full face we fitted her with and she said she slept better with it. She got a cold and it was easier to used when her nose was running. She does still switch back to the other full face mask. She would like another fitting to try different masks. I will write for a mask refitting and she can see if she can get a better fit. This would reduce the mask leak noise, air blowing in her eyes and dry mouth. She voiced understanding. Patient's apnea severity and rationale for treatment to reduce apnea, improve sleep quality and reduce cardiovascular and cerebrovascular events was reviewed. I also reviewed the benefit of consistent device use of CPAP for anxiety. 2. Obesity, unspecified. Currently patients BMI is 40.0. Obesity increases the risk of apnea, CPAP pressure requirements and overall health risks especially cardiovascular and diabetes. Thus patient is advised to lose weight. * Continue auto CPAP pressure at 7-10.6 cmH2O * Mask refitting * Notify me if snoring with mask or feeling that the pressure is too much or too little * Attempt to lose weight * Call this office if any problems using CPAP * Return for follow up in 1-2 months, or sooner if concerns arise Counseling Topics: Spare mask, Weight loss health impact Visit Type: In Office Time Spent with Patient (minutes): 20 Provider Statement: I spent 100% of the Face to Face Visit with the patient with greater than 50% spent counseling the patient and coordination of care.
== END 2022-11-21 14:41 | disposition home or self-care (01) ==
LOC: SC 14:40
PROVIDERS: ATTEND Nurse Practitioner Family
DX: G47.33 Obstructive sleep apnea (adult) (pediatric) (principal); E66.01 Morbid (severe) obesity due to excess calories; Z68.41 Body mass index [BMI] 40.0-44.9, adult
CPT/HCPCS: 99212; 99213

== ENCOUNTER 2022-12-19 14:51 | Outpatient (CLI) | payer OTHER ==
--- NOTE | 2022-12-19 15:22 | SLEEP CARE CONSULTATION ---
Information from patient questionnaire entered by Jailyn Soto. I have reviewed and concur with the information entered by Jailyn Soto. This document represents the service I personally performed and the decisions made by me, Shanita Gupta ARNP. History of Present Illness Service Date and Time: 12/19/2022 1451 Previous diagnosis: Moderate, Obstructive Sleep Apnea-Hypopnea Syndrome AHI: 16.4 (in 2020) Reason for follow up: one month (MASK REFITTING ) Equipment type: CPAP (ResMed Airsense 11, s/u 07/2021) Equipment obtained from: Other ([facility]; getting supplies as needed) Mask style: Nasal Mask brand: Resmed (AirTouch N30) Backup mask available: Yes (other mask) Last cushion change: 1 month Prior sleep studies: No Type of Sleep Study: Home sleep study HPI additional information: WENDY SIMMS was diagnosed to have moderate, AHI 16.4, obstructive sleep apnea-hypopnea syndrome and returned today for CPAP therapy one month follow-up. Sleep Study - Results Type of Sleep Study: Home sleep study Prior sleep studies: No CPAP Compliance Data - Data Reviewed with Patient Average duration of nightly device use: 5 hours 27 minutes Compliance rate %: 57 ( days used) Current pressure setting (cmH2O): 7-10.6 Average residual AHI: 1.4 Central apnea: 0.4 Obstructive apnea: 0.2 Subjective Missed days of use due to: reports: mask issues Patient concerns: reports: mask discomfort, mask leak noise, condensation in mask/hose, dry mouth, nose, throat, other (headaches, improved but still getting them). denies: aerophagia, air blowing in eyes, nasal congestion, epistaxis Observed to snore while using device: No Current pressure setting perceived as: comfortable On therapy, patient: reports: sleeping better, awakening more refreshed, being more awake and alert during the day, more rested overall. denies: drowsiness while driving Initial [place] Sleepiness Scale score: 14 (in 2020) Current [place] Sleepiness Scale score: 13 (12/19/22) Allergies and Home Medications Drug allergies reviewed: Yes (NKDA) Home medication list reviewed: Yes (no changes) Review of Systems Review of systems same as previous: Yes (no changes) Physical Exam Vital signs obtained and entered by: JAILYN Oakes MA Blood Pressure: 138/90 (left arm) Cuff size: regular Heart Rate: 89 O2 Saturation: 98 Height: 5 ft 5 in Weight: 241 lb 6.4 oz Body Mass Index: 40.1 BMI Classification: Morbidly Obese Impression and Plan 1. Obstructive Sleep Apnea-Hypopnea Syndrome, moderate, with fair treatment compliance and good apnea control. On CPAP therapy, the patient has better sleep quality and is more rested overall. She states she had her mask fitting and chose a Resmed AirTouch N20. She likes it a lot better and reduce mask leaks and mask discomfort. She still gets some condensation in her mask and oral dryness when she oral vents. I reviewed her prescription online and reduced her humidity from 6 to 5. Her tube temperature is at 82 degrees. She did try a chin strap but it was not comfortable and asks if she can use some mouth strips to keep her mouth closed. I advised her that she could use the mouth strips and she will give them a try. She states her headaches that were daily are now down to about 3 days a week. She feels the pressure is a little low at the beginning of the night. I will increase her ramp starting pressure to 6 cmH2O and the patients pressure will be changed to autoCPAP 7-10 cmH20 for patient comfort. Patient advised to contact me if pressure change is uncomfortable so that it can be adjusted. Goals for apnea control discussed. Patient's apnea severity and rationale for treatment to reduce apnea, improve sleep quality and reduce cardiovascular and cerebrovascular events was reviewed. I also reviewed the benefit of consistent device use of CPAP for anxiety. 2. Obesity, unspecified. Currently patients BMI is 40.1. Obesity increases the risk of apnea, CPAP pressure requirements and overall health risks especially cardiovascular and diabetes. Thus patient is advised to lose weight. The patient's CPAP pressure range should accommodate some weight loss. Symptoms to report for additional pressure adjustment discussed. * Change auto CPAP pressure to 7-10 cmH2O * Notify me if snoring with mask or feeling that the pressure is too much or too little * Attempt to lose weight * Call this office if any problems using CPAP * Return for follow up in 3 months, or sooner if concerns arise Counseling Topics: Spare mask, Weight loss health impact Visit Type: In Office Time Spent with Patient (minutes): 23 Provider Statement: I spent 100% of the Face to Face Visit with the patient with greater than 50% spent counseling the patient and coordination of care.
[2022-12-19 15:23] VITALS: BP 138/90
== END 2022-12-19 14:52 | disposition home or self-care (01) ==
LOC: SC 14:51
PROVIDERS: ATTEND Nurse Practitioner Family
DX: G47.33 Obstructive sleep apnea (adult) (pediatric) (principal); E66.01 Morbid (severe) obesity due to excess calories; Z68.41 Body mass index [BMI] 40.0-44.9, adult
CPT/HCPCS: 99212; 99213

== ENCOUNTER 2023-03-20 15:07 | Outpatient (CLI) | payer OTHER ==
--- NOTE | 2023-03-20 15:31 | Sleep Patient Instructions ---
Sleep Center Visit Summary - Patient Visit Information Reason for Visit: 3 month followup of CPAP therapy - Patient Instructions Additional Instructions: You were here for follow up of CPAP therapy. You will be continued on CPAP therapy with pressure at 7-10 cmH2O. You should follow up with sleep care in 6 months. You may contact us sooner for any questions or concerns. - Clinic Information Contact: [facility] [address] [place] [email or web address] T: [phone]
--- NOTE | 2023-03-20 15:34 | SLEEP CARE CONSULTATION ---
Information from patient questionnaire entered by Jailyn Soto. I have reviewed and concur with the information entered by Jailyn Soto. This document represents the service I personally performed and the decisions made by , Shanita Gupta ARNP. History of Present Illness Service Date and Time: 03/20/2023 1507 Previous diagnosis: Moderate, Obstructive Sleep Apnea-Hypopnea Syndrome AHI: 16.4 (in 2020) Reason for follow up: three month (F/U) Equipment type: CPAP (ResMed Airsense 11, s/u 07/2021) Equipment obtained from: Other ([facility]; getting supplies as needed) Mask style: Nasal (AirFit N20) Backup mask available: Yes (old mask) Last cushion change: yesterday Prior sleep studies: No Type of Sleep Study: Home sleep study HPI additional information: WENDY SIMMS was diagnosed to have moderate, AHI 16.4, obstructive sleep apnea-hypopnea syndrome and returned today for CPAP therapy three month follow- up. Sleep Study - Results Type of Sleep Study: Home sleep study Prior sleep studies: No CPAP Compliance Data - Data Reviewed with Patient Average duration of nightly device use: 6 HRS 54 MIN Compliance rate %: 91 (12/19/22-03/18/23; 89/90 days used) Current pressure setting (cmH2O): 7-10 Average residual AHI: 1.0 Central apnea: 0.3 Obstructive apnea: 0.2 Average large leak: 1.1 L/pm Subjective Patient concerns: reports: mask discomfort (still some skin breakout, but has improved), air blowing in eyes, mask leak noise. denies: aerophagia, condensation in mask/hose, nasal congestion, dry mouth, nose, throat, epistaxis Observed to snore while using device: No Current pressure setting perceived as: comfortable On therapy, patient: reports: sleeping better, awakening more refreshed, being more awake and alert during the day, more rested overall. denies: drowsiness while driving Initial [place] Sleepiness Scale score: 14 (in 2020) Current [place] Sleepiness Scale score: 14 (03/20/23) Allergies and Home Medications Known drug allergies: No Drug allergies reviewed: Yes Home medication list reviewed: Yes (Accutane and control) Allergy and home medication list: Allergies No Known Drug Allergies Allergy Review of Systems Review of systems same as previous: Yes (no changes) Physical Exam Vital signs obtained and entered by: JAILYN Oakes MA Blood Pressure: 138/90 (LEFT ARM) Cuff size: regular Heart Rate: 88 O2 Saturation: 98 Height: 5 ft 5 in Weight: 239 lb 12.8 oz Weight change since last visit: 2 lb loss Body Mass Index: 39.9 BMI Classification: Obese Impression and Plan 1. Obstructive Sleep Apnea-Hypopnea Syndrome, moderate, with good treatment compliance and good apnea control. On CPAP therapy, the patient has better sleep quality and is more rested overall. Patient has significant improvement of their sleep apnea and is satisfied with current CPAP therapy. Patient states her new mask is working out very well. Patient denies problems with oral dryness, nasal congestion, epistaxis, skin irritation or aerophagia. Patient's apnea severity and rationale for treatment to reduce apnea, improve sleep quality and reduce cardiovascular and cerebrovascular events was reviewed. I also reviewed the benefit of consistent device use of CPAP for anxiety. 2. Obesity, unspecified. Currently patients BMI is 39.9. Obesity increases the risk of apnea, CPAP pressure requirements and overall health risks especially cardiovascular and diabetes. Thus patient is advised to continue to try to lose weight. * Continue auto CPAP pressure at 7-10 cmH2O * Notify me if snoring with mask or feeling that the pressure is too much or too little * Attempt to lose weight * Call this office if any problems using CPAP * Return for follow up in 6 months, or sooner if concerns arise Counseling Topics: Spare mask, Weight loss health impact Visit Type: In Office Time Spent with Patient (minutes): 14 Provider Statement: I spent 100% of the Face to Face Visit with the patient with greater than 50% spent counseling the patient and coordination of care.
[2023-03-20 15:35] VITALS: BP 138/90
== END 2023-03-20 15:08 | disposition home or self-care (01) ==
LOC: SC 15:07
PROVIDERS: ATTEND Nurse Practitioner Family
DX: G47.33 Obstructive sleep apnea (adult) (pediatric) (principal); E66.9 Obesity, unspecified; Z68.39 Body mass index [BMI] 39.0-39.9, adult
CPT/HCPCS: 99212; 99213

== ENCOUNTER 2023-11-11 10:28 | Outpatient (CLI) | payer OTHER ==
--- NOTE | 2023-11-11 11:03 | Sleep Patient Instructions ---
Sleep Center Visit Summary - Patient Visit Information Reason for Visit: 6-month follow-up - Patient Instructions Additional Instructions: You were here for follow up of CPAP therapy. You will be continued on CPAP therapy with pressure at 7-10 cmH2O. 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 Please reach out to CPAP supplier. You should follow up with sleep care in 12 months. You may contact us sooner for any questions or concerns. - Clinic Information Contact: [facility] [address] [place] [address] [email or web address] T: [phone]
--- NOTE | 2023-11-11 11:07 | SLEEP CARE CONSULTATION ---
Information from patient questionnaire entered by Cheyenne Soto. I have reviewed and concur with the information entered by Cheyenne Soto. This document represents the service I personally performed and the decisions made by me, Shanita Gupta ARNP. History of Present Illness Service Date and Time: 11/11/2023 1028 Previous diagnosis: Moderate, Obstructive Sleep Apnea-Hypopnea Syndrome AHI: 16.4 (in 2020) Reason for follow up: six month (F/U) Equipment type: CPAP (ResMed Airsense 11, s/u 07/2021) Equipment obtained from: Other ([facility]; getting supplies as needed) Mask style: Nasal (AirFit N20) Mask brand: Resmed Backup mask available: No (only cushions) Last cushion change: last week Prior sleep studies: No Type of Sleep Study: Home sleep study HPI additional information: WENDY SIMMS was diagnosed to have moderate, AHI 16.4, obstructive sleep apnea-hypopnea syndrome and returned today for CPAP therapy six month follow-up. Sleep Study - Results Type of Sleep Study: Home sleep study Prior sleep studies: No CPAP Compliance Data - Data Reviewed with Patient Average duration of nightly device use: 6 HRS 44 MINS Compliance rate %: 85 (05/12/23-11/07/23; 171/180 days used) Current pressure setting (cmH2O): 7-10 Average residual AHI: 0.9 Central apnea: 0.2 Obstructive apnea: 0.2 Average large leak: 2.8 L/min Subjective Missed days of use due to: reports: travel Patient concerns: reports: condensation in mask/hose (occasional), dry mouth, nose, throat (unable to use chinstrap, too tight; trying mouth tapes but ran out), other (headaches, just started in last 2 weeks, sometimes waking up with). denies: aerophagia, mask discomfort, air blowing in eyes, mask leak noise, nasal congestion, epistaxis Observed to snore while using device: Yes (caught herself snoring a couple time s) Current pressure setting perceived as: comfortable On therapy, patient: reports: sleeping better, awakening more refreshed, being more awake and alert during the day, more rested overall. denies: drowsiness while driving Initial [place] Sleepiness Scale score: 14 (in 2020) Current [place] Sleepiness Scale score: 15 (11/11/23) Allergies and Home Medications Known drug allergies: No Drug allergies reviewed: Yes Home medication list reviewed: Yes (as listed) Allergy and home medication list: Allergies No Known Drug Allergies Allergy (Verified 11/09/23 08:43) Home Medications Medication Instructions Recorded Confirmed Last Taken Type Cholecalciferol (Vitamin D3) See Rx Instructions .ROUTE .COMPLEX 11/11/23 11/11/23 Unknown History [Vitamin D3] Keerthi See Rx Instructions .ROUTE .COMPLEX 11/11/23 11/11/23 Unknown History ISOtretinoin [Amnesteem] See Rx Instructions .ROUTE .COMPLEX 11/11/23 11/11/23 Unknown History Iron Fum,Ps/Folic/Bcomp,C No.9 See Rx Instructions .ROUTE .COMPLEX 11/11/23 11/11/23 Unknown History [Iron Folate Plus Capsule] Triamcinolone Acetonide [Kourzeq] See Rx Instructions .ROUTE .COMPLEX 11/11/23 11/11/23 Unknown History Review of Systems Review of systems same as previous: Yes (NO CHANGE) Physical Exam Vital signs obtained and entered by: CHEYENNE Oakes MA Blood Pressure: 167/99 (LEFT ARM) Cuff size: regular Heart Rate: 72 O2 Saturation: 100 Height: 5 ft 5 in Weight: 245 lb 9.6 oz Body Mass Index: 40.8 BMI Classification: Morbidly Obese Impression and Plan 1. Obstructive Sleep Apnea-Hypopnea Syndrome, moderate, with good treatment compliance and good apnea control. On CPAP therapy, the patient has better sleep quality and is more rested overall. Patient has significant improvement of their sleep apnea and is satisfied with current CPAP therapy. Patient states she gets some occasional dry mouth because her mouth will come open and the chinstrap that she has is too tight. She has been using mouth strips which do help but she is out of them at this time. She occasionally gets some condensation in the mask but has not found a reason for this. In the last 2 weeks she has developed some headaches, sometimes in the morning but she is not sure if this is attributable to the CPAP. 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 I will add this to an update of her supply prescription because she would like to have the supplies before she leaves the area. Patient's apnea severity and rationale for treatment to reduce apnea, improve sleep quality and reduce cardiovascular and cerebrovascular events was reviewed. I also reviewed the benefit of consistent device use of CPAP for anxiety. 2. Obesity, unspecified. Currently patients BMI is 40.8. Obesity increases the risk of apnea, CPAP pressure requirements and overall health risks especially cardiovascular and diabetes. Thus patient is advised to lose weight. * Continue auto CPAP pressure at 7-10 cmH2O * Update supply prescription with request for 6 month supplies for deployment * Notify me if snoring with mask or feeling that the pressure is too much or too little * Attempt to lose weight * Call this office if any problems using CPAP * Return for follow up in 12 months, or sooner if concerns arise Counseling Topics: Spare mask, Weight loss health impact Prescriptions: Device supplies (with 6 months of supplies for deployment) Follow up with Sleep Care in: 1 year Visit Type: In Office Time Spent with Patient (minutes): 20 Provider Statement: I spent 100% of the Face to Face Visit with the patient with greater than 50% spent counseling the patient and coordination of care.
[2023-11-11 11:17] VITALS: BP 167/99; O2SAT 100
== END 2023-11-11 10:29 | disposition home or self-care (01) ==
LOC: SC 10:28
PROVIDERS: ATTEND Nurse Practitioner Family
DX: G47.33 Obstructive sleep apnea (adult) (pediatric) (principal); E66.01 Morbid (severe) obesity due to excess calories; Z68.41 Body mass index [BMI] 40.0-44.9, adult
CPT/HCPCS: 99212; 99213

== ENCOUNTER 2024-07-23 02:09 | Emergency (ER) | payer OTHER ==
[2024-07-23 02:27] VITALS: BP 160/120; O2SAT 100
--- NOTE | 2024-07-23 02:37 | ED Physician Documentation ---
PD HPI OPHTHO - Stated complaint Stated Complaint: LT EYE PX - Chief complaint Chief Complaint: Heent - History obtained from History obtained from: Patient - Additional information Additional information: 33-year-old female presents for left eye foreign body sensation. Patient states that as she was going to bed she felt like an eyelash got in her eye with irritation and tearing. She applied her usual eyedrops without relief. The foreign body sensation persisted and she was concerned that she may have gotten an eyelash stuck, and so she decided to present for evaluation. Patient states that as she arrived to the emergency department she began to notice greenish crusting in the corners of her eyes and puffiness of her eye. Patient wears glasses, she denies changes in her vision. Review of Systems Constitutional: denies: Fever, Chills Eyes: reports: Discharge, Irritation. denies: Loss of vision, Decreased vision, Photophobia Ears: denies: Loss of hearing, Ear pain, Drainage/discharge Nose: denies: Rhinorrhea / runny nose, Foreign Body Throat: denies: Dental pain / toothache, Oral lesions / sores, Sore throat PD PAST MEDICAL HISTORY - Past Medical History Past Medical History: Yes Cardiovascular: None Respiratory: None Neuro: None Endocrine/Autoimmune: None GI: None EDGE BURNISHER: None : None HEENT: None Psych: None Musculoskeletal: None Derm: None - Past Surgical History Past Surgical History: Yes - Present Medications Home Medications: Ambulatory Orders Medication Instructions Recorded Confirmed Keerthi See Rx Instructions .ROUTE .COMPLEX 11/11/23 11/11/23 Ferrous Sulfate 1 tab PO 07/23/24 Glucosamine/D3/Boswellia Aleah 1 tab PO DAILY 07/23/24 07/23/24 [Osteo Bi-Flex Tablet] Ofloxacin 0.3% Ophth Drops 2 drops OPTH QID 7 Days #5 ml 07/23/24 [Ocuflox 0.3% Ophth Drops] - Allergies Allergies/Adverse Reactions: Allergies Allergy/AdvReac Type Severity Reaction Status Date / Time No Known Drug Allergies Allergy Verified 07/23/24 02:19 - Social History Does the pt smoke?: No Smoking Status: Never smoker Does the pt have substance abuse?: No - Immunizations Immunizations are current?: Yes - POLST Patient has POLST: No PD ED PE NORMAL - Vitals Vital signs reviewed: Yes - General General: Alert and oriented X 3, No acute distress, Well developed/nourished - HEENT HEENT: Atraumatic, PERRL, EOMI, Moist mucous membranes, Other (Negative Tawny sign, eyelids everted, no foreign body found, no fluorescein uptake, greenish c rusting discharge in corner of L eye) - Derm Derm: Normal color, Warm and dry, No rash - Neuro Neuro: Alert and oriented X 3, speech writer 2-12 intact, No motor deficit, Normal speech Results - Vitals Vitals: Vital Signs - 24 hr 07/23/24 02:13 Temperature 37.4 C Heart Rate 91 Respiratory 16 Rate Blood Pressure 160/120 H O2 Saturation 100 Oxygen O2 Source Room air PD Medical Decision Making - ED course Complexity details: reviewed results, re-evaluated patient, considered differential, d/w patient ED course: Patient presenting with symptoms consistent with bacterial conjunctivitis. Proparacaine drops administered, there is no fluorescein uptake, eyelids were everted, no foreign body found. Right eye normal. Patient informed of likely diagnosis. She was given erythromycin ointment to apply before bed and antibiotic drops sent to pharmacy of choice. Patient does not wear contacts, she is reliant on glasses only. ED return precautions discussed at bedside. Departure - Departure Disposition: 01 Home, Self Care Clinical Impression: Bacterial conjunctivitis of left eye Condition: Stable Instructions: ED Conjunctivitis Bacterial Prescriptions: Ofloxacin 0.3% Ophth Drops [Ocuflox 0.3% Ophth Drops] 2 drops OPTH QID 7 Days #5 ml Comments: There were no foreign bodies seen on your exam today. You most likely have bacterial conjunctivitis, or pinkeye. Apply the antibiotic ointment tonight and use drops for the rest of your treatment. If you wear eye makeup do not do so while being treated, and you should dispose of any recently used eye makeup to avoid re-infection. Any time you touch your eye wash your hands with soap and water. Forms: PCP List Discharge Date/Time: 07/23/24 02:52
[2024-07-23] MEDS: ERYTHROMYCIN OPHTH OINT 1 GM TUBE LEFTEYE STA (02:52)
== END 2024-07-23 02:52 | disposition home or self-care (01) ==
LOC: ED 02:09
DX: H10.022 Other mucopurulent conjunctivitis, left eye (principal)
CPT/HCPCS: 99283; J3490